=== PATIENT | female | born 1965 | race Caucasian/White ===

== ENCOUNTER 2023-12-18 16:34 | Emergency (ER) | payer MEDICARE ==
[~2023-12-18] VITALS: Ht 154.9 cm; Wt 115.5 kg
[2023-12-18 18:54] LABS: BASOPHILS 1.1 % (0-2); EOSINOPHILS 2.4 % (0-6); HEMATOCRIT 38.5 % (35.0-50.0); HEMOGLOBIN 12.9 g/dL (12.0-18.0); LYMPHOCYTES 24.7 % (24-44); MCH 28.5 (27-36); MCHC 33.4 g/dl (30-36); MCV 85.3 fl (81-99); MONOCYTES 5.7 % (0-12); NEUTROPHILS 66.1 % (39-80); PLATELET COUNT 222 K/uL (140-440); RBC 4.51 M/ul (4.3-5.7); RDW 14.5 (10.5-15.0)
[2023-12-18 19:07] LABS: INR 1.08 (0.80-1.30); PROTIME 13.3 Sec (11.2-14.2)
[2023-12-18 19:16] LABS: ALBUMIN 3.3 g/dL (3.4-5.0); ALBUMIN/GLOBULIN RATIO 0.83 (1.1-2.4); ANION GAP 10.7 (7-21); BILIRUBIN, TOTAL 0.4 ng/dL (0.2-1.0); BUN/CREATININE RATIO 13.51 (6.0-28.6); CALCIUM 9.5 mg/dL (8.5-10.1); CREATININE, SERUM 0.74 mg/dL (0.55-1.02); MAGNESIUM 1.8 mg/dL (1.8-2.4); POTASSIUM 3.7 mmol/L (3.5-5.1); PROTEIN, TOTAL 7.3 g/dL (6.4-8.2)
[2023-12-18 19:52] VITALS: BP 133/68
--- NOTE | 2023-12-18 21:41 | EKG ---
[facility] [address] [facility] [place] [address] Signed Sinus bradycardia Low voltage QRS Septal infarct (cited on or before 10-JUN-2023) Abnormal ECG When compared with ECG of 10-JUN-2023 11:49, Questionable change in initial forces of Anterolateral leads Confirmed by Donovan Real MD () on 12/18/2023 9:41:44 PM Electronically Signed By: DONOVAN REAL MD 12/18/232140 PATIENT NAME: SATISH RODRIGUEZ Electrocardiogram DATE OF : 69 PHYSICIAN: DONOVAN REAL MD REPORT #: [id number] REPORT IS CONFIDENTIAL AND NOT TO BE RELEASED WITHOUT AUTHORIZATION
== END 2023-12-18 19:56 | disposition home or self-care (01) ==
LOC: ED 16:34
PROVIDERS: Emergency Medicine
DX: Z45.02 Encounter for adjustment and management of automatic implantable cardiac defibrillator (principal); J44.9 Chronic obstructive pulmonary disease, unspecified; I25.2 Old myocardial infarction; Z88.1 Allergy status to other antibiotic agents; Z79.01 Long term (current) use of anticoagulants; Z79.899 Other long term (current) drug therapy
CPT/HCPCS: 36415; 71045; 80053; 83735; 84484; 85025; 85610; 93005; 93010; 99284-25